=== PATIENT | female | born 1955 | race Caucasian/White ===

== ENCOUNTER 2022-05-20 08:58 | Emergency (ER) | payer OTHER, BC ==
[2022-05-20 09:32] VITALS: BP 138/83; PULSE 88; RESP 18; TEMP 99; BMI 27.4
== END 2022-05-20 11:05 | disposition home or self-care (01) ==
LOC: FER 08:58
DX: U07.1 COVID-19 (principal)
CPT/HCPCS: 71045-TC-FY; 99281-25

== ENCOUNTER 2022-11-02 07:00 | Emergency (ER) | payer OTHER, BC ==
[2022-11-02 07:10] VITALS: TEMP 97.6; BMI 20.3
[2022-11-02] MEDS ORDERED: IBUPROFEN 600 MG TABLET (FP) PO ONE ×2 (07:25→07:29)
[2022-11-02 07:40] VITALS: BP 144/96; PULSE 78; RESP 17
[2022-11-02 08:15] LABS: HEMATOCRIT 37.4 % (32.4-45.2); HEMOGLOBIN 12.8 G/dL (10.7-15.3); MCH 30.6 pg (25.7-33.7); MCHC 34.3 g/dl (32.0-36.0); MEAN PLT VOLUME 7.1 fl (7.5-11.1); PLATELET COUNT 247.5 10^3/uL (134-434); RDW 14.3 % (11.6-15.6); WHITE BLOOD COUNT 5.8 10^3/uL (4.0-10.8)
[2022-11-02 08:22] LABS: ALBUMIN 3.8 g/dl (3.4-5.0); BILIRUBIN,TOTAL 0.6 mg/dl (0.2-1); CREATININE 0.6 mg/dl (0.55-1.3); TOT PROT 6.8 g/dl (6.4-8.2)
== END 2022-11-02 09:08 | disposition home or self-care (01) ==
LOC: FER 07:00
DX: S46.812A Strain of other muscles, fascia and tendons at shoulder and upper arm level, left arm, initial encounter (principal); M54.2 Cervicalgia; R10.13 Epigastric pain; X50.1XXA Overexertion from prolonged static or awkward postures, initial encounter
CPT/HCPCS: 36415; 71046-TC-FY; 80053; 84484; 85027; 93005; 99285-25